=== PATIENT | male | born 1985 | race Caucasian/White ===

== ENCOUNTER 2021-07-10 15:39 | Inpatient (IN) | payer BC, OTHER ==
[2021-07-10 18:08] LABS: Amphetamine Screen,Urine Not Detected (NotDetected); Barbiturate Screen,Urine Not Detected (NotDetected); Benzodiazepines Screen,Urine Not Detected (NotDetected); Cocaine Screen,Urine Not Detected (NotDetected); Methadone Screen, Urine Not Detected (NotDetected); Opiate Screen,Urine Not Detected (NotDetected); Oxycodone Screen, Urine Not Detected (NotDetected); Phencyclidine Screen,Urine Not Detected (NotDetected); Tricyclic Antidepressant,Urine Not Detected (NotDetected); Urn Cannabinoid Scrn Detected (NotDetected)
[2021-07-10] MEDS ORDERED: MAG HYDROX/AL HYDROX/SIMETH 30 ML CUP PO PRN (20:55)
[2021-07-10] MEDS ORDERED: ACETAMINOPHEN TAB 325 MG TAB PO PRN (20:55)
[2021-07-10] MEDS ORDERED: MAGNESIUM HYDROXIDE 2,400 MG/10 ML CUP PO PRN (20:55)
[2021-07-10] MEDS ORDERED: LORazepam 2 MG/ML INJ IM PRN (20:58)
[2021-07-10] MEDS ORDERED: HALOPERIDOL LACTATE 5 MG/ML 1 ML VIAL IM PRN (20:58)
[2021-07-10] MEDS: LORazepam 1 MG TAB PO PRN (21:36)
--- NOTE | 2021-07-10 23:53 | ED ---
General Adult HPI - General Chief complaint: Psychiatric Symptoms Stated complaint: Mental Health Eval Time Seen by Provider: 07/10/21 16:34 Source: patient, RN notes reviewed, old records reviewed Mode of arrival: ambulatory Limitations: no limitations - History of Present Illness Initial comments: I evaluated the patient when he was placed in a room.Patient is a 35-year-old male with past medical history remarkable for recent depression who presents emergency department over concerns for worsening depression as well as suicidal ideations and plans. He recently lost both parents within the last year and is been feeling depressed. States he has been having thoughts of hanging himself. He denies any attempts. Denies any drug use. Denies any homicidal ideations, attempts complaints. Denies any visual or auditory hallucinations. Denies any chest pain, shortness breath, abdominal pain, nausea, vomiting, fevers, chills, sick contacts. He otherwise has no acute complaints. He presents with family and he is seeking evaluation by psychiatry for his current needs. - Related Data Home Medications Medication Instructions Recorded Confirmed No Known Home Medications 07/10/21 07/10/21 Allergies Allergy/AdvReac Type Severity Reaction Status Date / Time No Known Allergies Allergy Verified 07/10/21 20:46 Review of Systems ROS Statement: Those systems with pertinent positive or pertinent negative responses have been documented in the HPI. Review of Systems: CONST: Denies fever EYES: Denies blurry vision ENT: Denies nasal congestion C/V: Denies Chest pain RESP: Denies shortness of breath GI: Denies abdominal pain : Denies dysuria SKIN: Denies rash. MSK: Denies joint pain. NEURO: Denies headache PSYCH: Denies homicidal ideations/plans/attempts. Denies visual or auditory hallucinations. He endorses suicidal ideations, plans. Denies suicide attempts. ROS Other: All systems not noted in ROS Statement are negative. Past Medical History Past Medical History: No Reported History History of Any Multi-Drug Resistant Organisms: None Reported Past Surgical History: No Surgical Hx Reported Past Psychological History: No Psychological Hx Reported Smoking Status: Current every day smoker, Vaper Past Alcohol Use History: None Reported Past Drug Use History: Marijuana General Exam - General Exam Comments Initial Comments: General: Appears in no acute distress. Patient has flattened affect. HEAD: Normal with no signs of head trauma. EYES: PERRLA, EOMI, conjunctiva normal, no discharge. ENT: Hearing grossly intact, normal oropharynx. RESPIRATORY: Clear breath sounds bilaterally. No wheezes, rales, or rhonchi. C/V: Regular rate and rhythm. S1 and S2 auscultated, no edema, peripheral pul ses 2+ and intact throughout ABD: Abd is soft, nontender, nondistended EXT: Normal range of motion, no obvious deformity SKIN: No rashes or lesions observed on exposed skin. NEURO: Alert and oriented x 4. Cranial nerves II-XII intact. No focal sensory or strength deficits. Limitations: no limitations Course Vital Signs 07/10/21 07/10/21 07/10/21 16:24 17:28 19:27 Temperature 98.2 F Pulse Rate 95 Respiratory 20 18 18 Rate Blood Pressure 168/104 O2 Sat by Pulse 99 Oximetry 07/10/21 20:30 Temperature Pulse Rate Respiratory 18 Rate Blood Pressure O2 Sat by Pulse Oximetry Medical Decision Making - Medical Decision Making Based on the patient's presentation and physical exam, I do believe he requires psychiatric evaluation at this time. We'll obtain a screening breathalyzer test which was 0 for alcohol. UDS will also be obtained which revealed positive for marijuana. Covid is negative. At this time patient is medically cleared for evaluation by psychiatry. I do not believe that he requires any further laboratory studies or imaging at this time. Psychiatry evaluated the patient determined that he needs inpatient criteria for psychiatry. Patient will be admitted to psychiatry in stable condition for further treatment. - Lab Data Lab Results 07/10/21 07/10/21 Range/Units 17:28 19:37 Urine Opiates Screen Not Detected (NotDetected) Ur Oxycodone Screen Not Detected (NotDetected) Urine Methadone Screen Not Detected (NotDetected) Ur Propoxyphene Screen Not Detected (NotDetected) Ur Barbiturates Screen Not Detected (NotDetected) U Tricyclic Antidepress Not Detected (NotDetected) Ur Phencyclidine Scrn Not Detected (NotDetected) Ur Amphetamines Screen Not Detected (NotDetected) U Methamphetamines Scrn Not Detected (NotDetected) U Benzodiazepines Scrn Not Detected (NotDetected) Urine Cocaine Screen Not Detected (NotDetected) U Marijuana (THC) Screen Detected H (NotDetected) Coronavirus (PCR) Not Detected (Not Detectd) Disposition Clinical Impression: Encounter for psychiatric assessment, Suicidal ideation, Depression Disposition: ADMITTED IP TO THIS HOSP Condition: Stable
[2021-07-11] MEDS: NICOTINE 14MG/24HR PATCH TRANSDERM SCH (08:10)
[2021-07-11] MEDS: LORazepam 1 MG TAB PO PRN (08:10)
[2021-07-11 08:29] LABS: Basophils # (A) 0.1 k/uL (0-0.2); Basophils % (A) 1 %; Eosinophils # (A) 0.3 k/uL (0-0.7); Eosinophils % (A) 3 %; HCT 45.9 % (39.0-53.0); HGB 14.7 gm/dL (13.0-17.5); Lymphocytes # (A) 2.8 k/uL (1.0-4.8); Lymphocytes % (A) 38 %; MCH 29.7 pg (25.0-35.0); MCHC 32.1 g/dL (31.0-37.0); MCV 92.5 fL (80.0-100.0); Mean Platelet Volume 8.7; Monocytes # (A) 0.3 k/uL (0-1.0); Monocytes % (A) 5 %; Neutrophils # (A) 3.8 k/uL (1.3-7.7); Neutrophils % (A) 51 %; Platelet Count 152 k/uL (150-450); RBC 4.96 m/uL (4.30-5.90); WBC 7.5 k/uL (3.8-10.6)
[2021-07-11 08:39] LABS: ALT 19 U/L (4-49); AST 24 U/L (17-59); African American GFR (CKD) >90 (>60 ml/min/1.73 sqM); Albumin 4.1 g/dL (3.5-5.0); Alkaline Phosphatase 56 U/L (38-126); Anion Gap 6 mmol/L; Blood Urea Nitrogen 13 mg/dL (9-20); Calcium 9.4 mg/dL (8.4-10.2); Carbon Dioxide 27 mmol/L (22-30); Chloride 105 mmol/L (98-107); Glucose 88 mg/dL (74-99); Non-African American GFR(CKD) >90 (>60 ml/min/1.73 sqM); Potassium 4.4 mmol/L (3.5-5.1); Sodium 138 mmol/L (137-145); Total Bilirubin 0.7 mg/dL (0.2-1.3); Total Protein 6.8 g/dL (6.3-8.2)
[2021-07-11] MEDS: OLANZapine 5 MG TAB PO SCH ×3 (12:29→20:18)
[2021-07-11] MEDS: FLUoxetine HCL 20 MG CAP PO SCH (12:29)
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
[2021-07-11 17:17] LABS: Chol/HDL Ratio 3.35; Cholesterol 174 mg/dL (0-200); LDL Cholesterol,Calculated 98.8 mg/dL (0.0-131.0)
[2021-07-11] MEDS: IMIPRAMINE 25 MG TAB PO SCH (20:18)
[2021-07-12] MEDS: OLANZapine 5 MG TAB PO SCH (08:23)
[2021-07-12] MEDS: NICOTINE 14MG/24HR PATCH TRANSDERM SCH (08:23)
[2021-07-12] MEDS: FLUoxetine HCL 20 MG CAP PO SCH (08:23)
[2021-07-12] MEDS ORDERED: OLANZapine 10 MG TAB PO SCH (11:00)
[2021-07-12] MEDS ORDERED: OLANZapine 5 MG TAB PO ONE (11:30)
--- NOTE | 2021-07-12 12:03 | PN ---
PROGRESS NOTE DATE OF SERVICE: 07/12/2021. CHIEF COMPLAINT: The patient was depressed and hopeless. He had suicide thinking. He described high stress and grief. INTERVAL HISTORY: Patient has been continuing to struggle. He was out on the unit yesterday. He does not interact too much with others. He pays some attention to things going on around him. He did not attend groups yesterday. He said that he continued to feel quite depressed and distressed. He said he had difficulty sleeping last night where he woke frequently through the night. He notes that he did wake up once in the middle of the night and was somewhat in a daze and it took him a little bit to realize where he was. He says that is how his sleeping has been before coming into the hospital. He has been cooperative with care. Today, he has been out on the unit. He tends to wander about, though often walks in with a slumped posture and his head down. He has a very quiet manner. He continues today saying that he is very depressed and has not noticed any change in how he has been doing since admission. He tolerates his psychotropic medications. MENTAL STATUS: Patient sat in a slumped posture. Eye contact was fair at best. Psychomotor activity slow. Speech was monotone. He answered questions with brief responses. He was somewhat spontaneous. His affect was flat, mood depressed. He was he was significantly distressed. There was no indication of thought disorder. He voiced no thoughts of harm. Cognition was clear. ASSESSMENT: I will continue the current diagnosis and treatment plan. I will increase patient's Zyprexa to 10 mg twice a day. I will continue his Paxil 20 mg a day and Tofranil 25 mg at bedtime. I discussed the indication for his medications. I noted that it would take probably weeks for his antidepressant to have some benefit. I would look for some improvement in terms of stress reduction with the Zyprexa. I also noted that if he continues on the Tofranil over the next 3 or 4 days he may see some benefit in terms of improving sleep and reducing the nightmares that he has been having. There might be consideration for titrating up on Tofranil though typically 25 mg can be an effective dose to improve sleep architecture. I discussed long-term course of treatment including addressing depression and managing grief issues. I encouraged the patient to utilize some therapeutic walking as the potential help in reducing stress. We will focus on stabilization and discharge planning. MMCHALOL / IJN: [id number] /
[2021-07-12] MEDS: OLANZapine 10 MG TAB PO SCH (20:38)
[2021-07-12] MEDS: IMIPRAMINE 25 MG TAB PO SCH (20:38)
[2021-07-13 07:09] VITALS: TEMP 97.5
[2021-07-13] MEDS: NICOTINE 14MG/24HR PATCH TRANSDERM SCH (08:33)
[2021-07-13] MEDS: FLUoxetine HCL 20 MG CAP PO SCH (08:34)
[2021-07-13] MEDS: OLANZapine 10 MG TAB PO SCH ×2 (08:34→20:03)
--- NOTE | 2021-07-13 11:11 | P.PN ---
Progress Note - Text Progress Note Date: 07/13/21 Interval History: Patient was seen in his room and was directable and agreeable to speak with automotive service writer in the office. The patient continues to endorse significant symptoms of depression including feelings of sadness, crying episodes, low motivation, and suicidal ideation. He reports no current homicidal ideation, intention, and/or plan. He does attribute his depression to numerous stressors including the recent passing of his mother as well as his relationship with his children. He does admit to not coping with his emotional distress in a healthy manner in the outpatient setting stating that if substances such as alcohol were present he would engage in heavy use. He denies any auditory or visual hallucinations. He reports no paranoia or delusions. He has been adherent with the medications but is not endorsing any significant improvement in his mood. He does report an improved appetite. He reports sleep continues to be poor, with constant wakenings and difficulty with racing thoughts. Mental Status Exam: General Appearance: Patient appears to be stated age is alert, directable, and cooperative. Poor hygiene. Behavior: Patient is calmly seated without any agitated behavior. Crying throughout the interview. Eye contact is appropriate. Speech: Patient's speech is fluent and nonpressured. Spontaneous with normal rate, tone, and volume. Mood/Affect: Mood is depressed, affect is congruent and tearful. Suicidality/Homicidality: Patient denies having any suicidal or homicidal ideation intent or plan. Perceptions: Patient denies any visual hallucinations and denies any auditory hallucinations Though content/process: There is no evidence of any delusional thought content and thought process is linear and goal-directed. Memory and concentration: AOX3, grossly intact for the purposes of this session Judgment and insight: Improving mildly Vital Signs Temp 97.5 F L 07/13/21 07:01 Pulse 130 H 07/13/21 08:37 Resp 16 07/13/21 07:01 BP 142/93 07/13/21 08:37 Pulse Ox 99 07/10/21 16:24 Assessment Major Depressive Disorder, severe Posttraumatic Stress Disorder Alcohol Dependence Plan: -Patient continues to meet criteria for inpatient psychiatric admission for symptom stabilization and safety. Patient has signed adult voluntary form and medication consent and was placed in patient's chart. -Medications: Increase Prozac to 30 mg daily for depression/anxiety Continue Tofranil 25 mg for sleep terrors Continue Zyprexa 10 mg twice daily for mood augmentation Start Prazosin 1 mg at bedtime for PTSD-related nightmares. -When necessary Ativan and Haldol for agitation/aggression. -NRT - nicotine patch -SW on board for discharge planning. Encouraged the patient to participate in milieu.
[2021-07-13] MEDS: PRAZOSIN 1 MG CAP PO SCH (20:03)
[2021-07-13] MEDS: IMIPRAMINE 25 MG TAB PO SCH (20:03)
--- NOTE | 2021-07-13 21:50 | P.CONS ---
History of Present Illness - Reason for Consult Consult date: 07/13/21 - History of Present Illness The patient is a 35 yo M with a PMH of tobacco and marijuana abuse who presented to the ED with complaints of depression and suicidal ideation. The patient was admitted to the [facility] where he was seen and evaluated. The patient reported that both his parents over the last one year and that he had to take care of his ailing mother until her earlier this year. He reported that as a result, his personal relationships including the one with his suffered who has now left him with their children. The patient reports being suicidal and wanting to hang himself in the forest. He reports smoking one half packs of cigarettes daily along with occasional marijuana use. He denied physical complaints. He denied chest discomfort, shortness of breath, fever, chills, cough. Denied nausea, vomiting, abdominal pain, diarrhea. The patient's laboratory evaluation was reviewed. Review of systems: Pertinent positives and negatives as discussed in HPI, a complete review of sys tems was performed and all other systems are negative. Physical examination: General: non toxic, no distress, appears at stated age, overweight Derm: no unusual rashes/lesions no unusual ecchymoses, warm, dry Head: atraumatic, normocephalic, symmetric Eyes: EOMI, no lid lag, anicteric sclera, pupils equal round reactive to light ENT: Nose and ears atraumatic, no thrush, no pharyngeal erythema Neck: No thyromegaly, no cervical lymphadenopathy, trachea midline, supple Mouth: no lip lesion, mucus membranes moist Cardiovascular: S1S2 reg, no murmur, positive posterior tibial pulse bilateral, no edema, capillary refill less than 2 seconds Lungs: CTA bilateral, no rhonchi, no rales , no accessory muscle use Abdominal: soft, nontender to palpation, no guarding, no appreciable organomegaly, normal bowel sounds Ext: no gross muscle atrophy, muscle strength 5 out of 5 in all 4 extremities grossly, no contractures, Neuro: CN II-XI grossly intact, light touch intact all 4 extremities, finger to nose within normal limits, Psych: Alert, oriented, depressed affect Assessment/plan Tobacco abuse, marijuana abuse -Advised on importance of cessation -Nicotine patch as needed Depression with suicidal ideation -As per psychiatry Thank you for allowing us to participate in the care of this patient. We will follow peripherally. Do not hesitate to contact us with questions. Someone can be reached from the [facility] hospitalist group at all hours of the day at [phone]. Past Medical History Past Medical History: No Reported History History of Any Multi-Drug Resistant Organisms: None Reported Past Surgical History: No Surgical Hx Reported Past Psychological History: No Psychological Hx Reported Smoking Status: Current every day smoker, Vaper Past Alcohol Use History: None Reported Past Drug Use History: Marijuana - Past Family History Mother Family Medical History: CVA/TIA Medications and Allergies Home Medications Medication Instructions Recorded Confirmed Type No Known Home Medications 07/10/21 07/10/21 History Allergies Allergy/AdvReac Type Severity Reaction Status Date / Time No Known Allergies Allergy Verified 07/10/21 20:46 Physical Exam Vitals: Vital Signs Temp Pulse Pulse Resp BP BP 07/13/21 08:37 130 H 142/93 07/13/21 07:01 97.5 F L 90 16 123/78 Results CBC & Chem 7: 07/11/21 07:06 07/11/21 07:06
[2021-07-14 06:36] VITALS: BP 128/76; PULSE 65; RESP 14
[2021-07-14] MEDS: NICOTINE 14MG/24HR PATCH TRANSDERM SCH (07:56)
[2021-07-14] MEDS: OLANZapine 10 MG TAB PO SCH (07:56)
[2021-07-14] MEDS ORDERED: FLUoxetine HCL 10 MG CAP PO SCH (09:00)
--- NOTE | 2021-07-14 11:01 | P.PN ---
Progress Note - Text Progress Note Date: 07/14/21 Interval History: Patient was seen in his room and was directable and agreeable to speak with alistair yung in the office. The patient reporrts he slept well last night. He states he dreamt about his children and these were happy dreams. He reports 5 hours of sleep. He is currently denying any suicidal or homicidal ideation, intention, and/or plan. He reports no auditory or visual hallucinations. He denies any paranoia or other delusions. He states he is feeling better and that he has been able to address his hygiene and grooming. He reports he spoke with his aunt who is a nurse about returning home to her and having her watch him in the short term. He states he is looking forward to seeing his children again. Mental Status Exam: General Appearance: Patient appears to be stated age is alert, directable, and cooperative. Improved hygiene and grooming. Behavior: Patient is calmly seated without any agitated behavior. Eye contact is appropriate. Speech: Patient's speech is fluent and nonpressured. Spontaneous with normal rate, tone, and volume. Mood/Affect: Mood is "better." Affect is congruent and constricted in range. Suicidality/Homicidality: Patient denies having any suicidal or homicidal ideation intent or plan. Perceptions: Patient denies any visual hallucinations and denies any auditory hallucinations Though content/process: There is no evidence of any delusional thought content and thought process is linear and goal-directed. Memory and concentration: AOX3, grossly intact for the purposes of this session Judgment and insight: Improving mildly Vital Signs Temp 97.5 F L 07/14/21 06:34 Pulse 65 07/14/21 06:34 Resp 14 07/14/21 06:34 BP 128/76 07/14/21 06:34 Pulse Ox 99 07/10/21 16:24 Assessment Major Depressive Disorder, severe Posttraumatic Stress Disorder Alcohol Dependence Plan: -Patient continues to meet criteria for inpatient psychiatric admission for symptom stabilization and safety. Patient has signed adult voluntary form and medication consent and was placed in patient's chart. -Medications: Increase Prozac to 40 mg daily for depression/anxiety Continue Tofranil 25 mg for sleep terrors Decrease Zyprexa to 10 mg at bedtime for mood augmentation Continue Prazosin 1 mg at bedtime for PTSD-related nightmares. -When necessary Ativan and Haldol for agitation/aggression. -NRT - nicotine patch -SW on board for discharge planning. Encouraged the patient to participate in milieu.
[2021-07-14] MEDS: PRAZOSIN 1 MG CAP PO SCH (20:30)
[2021-07-14] MEDS: IMIPRAMINE 25 MG TAB PO SCH (20:30)
[2021-07-14] MEDS ORDERED: OLANZapine 10 MG TAB PO SCH (21:00)
[2021-07-15] MEDS: NICOTINE 14MG/24HR PATCH TRANSDERM SCH (08:25)
[2021-07-15] MEDS ORDERED: FLUoxetine HCL 20 MG CAP PO SCH (09:00)
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
== END 2021-07-15 11:40 | disposition home or self-care (01) | DRG 885 ==
LOC: EC 15:39 → 3MHU 20:52
PROVIDERS: ADMIT Psychiatry & Neurology Psychiatry; ATTEND Psychiatry & Neurology Psychiatry
DX: F33.2 Major depressive disorder, recurrent severe without psychotic features (principal); F10.239 Alcohol dependence with withdrawal, unspecified; G25.9 Extrapyramidal and movement disorder, unspecified; F11.10 Opioid abuse, uncomplicated; F12.10 Cannabis abuse, uncomplicated; F17.210 Nicotine dependence, cigarettes, uncomplicated; F41.0 Panic disorder [episodic paroxysmal anxiety]; F43.10 Post-traumatic stress disorder, unspecified; T40.1X2A Poisoning by heroin, intentional self-harm, initial encounter; Z20.822 Contact with and (suspected) exposure to COVID-19; Z79.899 Other long term (current) drug therapy; Z82.3 Family history of stroke
CPT/HCPCS: 80053; 80061; 80306; 82075; 83036; 84443; 85025; 87635; 99285

== ENCOUNTER 2021-08-19 13:33 | Emergency (ER) | payer BC ==
[2021-08-19 14:14] VITALS: BP 142/87; PULSE 108; RESP 22; TEMP 98
[2021-08-19] MEDS ORDERED: LORazepam 1 MG TAB PO STA ×2 (16:18→18:27)
[2021-08-19 16:42] LABS: Amphetamine Screen,Urine Not Detected (NotDetected); Barbiturate Screen,Urine Not Detected (NotDetected); Benzodiazepines Screen,Urine Detected (NotDetected); Cocaine Screen,Urine Not Detected (NotDetected); Methadone Screen, Urine Not Detected (NotDetected); Opiate Screen,Urine Not Detected (NotDetected); Oxycodone Screen, Urine Not Detected (NotDetected); Phencyclidine Screen,Urine Not Detected (NotDetected); Tricyclic Antidepressant,Urine Detected (NotDetected); Urn Cannabinoid Scrn Not Detected (NotDetected)
--- NOTE | 2021-08-19 16:52 | ED ---
General Adult HPI - General Chief complaint: Anxiety Stated complaint: Anxiety Time Seen by Provider: 08/19/21 15:41 Source: patient, RN notes reviewed, old records reviewed Mode of arrival: ambulatory Limitations: no limitations - History of Present Illness Initial comments: I evaluated the patient when he was placed in a room. Patient is a 35-year-old male with past medical history remarkable for anxiety and panic attacks as well as depression after. Of time recently in which she took her of his mother who as well as his father who . Since that time he has been having bad anxiety attacks and panic attacks. Was recently admitted to the hospital for suicidal ideations associated with these. He presents emergency department today complaining of worsening anxiety and panic attacks have been ongoing over the past few weeks. This is been happening since last time he saw his psychiatrist. He is unable to see a psychiatrist on an outpatient basis due to the sheer volume of patients at the facility. He states that his anxiety has been unbearable and didn't know what to take him to the emergency department. Is requesting to speak with psychiatry at this time. He has been attempting to control his anxiety and panic attacks with his Ativan 0.5 mg 3 times a day, however it seems to really take the edge off. He is endorsing chest tightness when they panic attacks are bad. He believes these are directly associated with them. Denies any fevers, chills, cough, abdominal pain, nausea, vomiting. Endorses lack of appetite as well as improved sleeping from last time. Denies any weakness or numbness. Denies any headaches. His no other acute complaints at this time. Denies any current suicidal ideations, attempts, plans. Denies any visual or auditory hallucinations. - Related Data Home Medications Medication Instructions Recorded Confirmed Citalopram Hydrobromide [CeleXA] 20 mg PO DAILY 08/19/21 08/19/21 Imipramine HCl [Tofranil] 50 mg PO DAILY 08/19/21 08/19/21 LORazepam [Ativan] 0.5 mg PO DAILY PRN 08/19/21 08/19/21 QUEtiapine [SEROquel] 100 mg PO HS 08/19/21 08/19/21 hydrOXYzine pamoate [Vistaril] 25 - 50 mg PO BID PRN 08/19/21 08/19/21 traZODone HCL [Desyrel] 50 mg PO HS PRN 08/19/21 08/19/21 Previous Rx's Medication Instructions Recorded Prazosin [Minipress] 1 mg PO HS 30 Days cap 07/15/21 OLANZapine [ZyPREXA] 10 mg PO DAILY 8 Days #8 tablet 08/19/21 Allergies Allergy/AdvReac Type Severity Reaction Status Date / Time No Known Allergies Allergy Verified 08/19/21 17:21 Review of Systems ROS Statement: Those systems with pertinent positive or pertinent negative responses have been documented in the HPI. Review of Systems: CONST: Denies fever EYES: Denies blurry vision ENT: Denies nasal congestion C/V: Denies Chest pain RESP: Denies shortness of breath GI: Denies abdominal pain : Denies dysuria SKIN: Denies rash. MSK: Denies joint pain. NEURO: Denies headache PSYCH: Denies suicidal and homicidal ideations/plans/attempts. Denies visual or auditory hallucinations. He endorses anxiety ROS Other: All systems not noted in ROS Statement are negative. Past Medical History Past Medical History: No Reported History History of Any Multi-Drug Resistant Organisms: None Reported Past Surgical History: No Surgical Hx Reported Past Psychological History: Anxiety Smoking Status: Former smoker, Vaper Past Alcohol Use History: None Reported Past Drug Use History: None Reported, Marijuana - Past Family History Mother Family Medical History: CVA/TIA General Exam - General Exam Comments Initial Comments: General: Appears anxious. HEAD: Normal with no signs of head trauma. EYES: PERRLA, EOMI, conjunctiva normal, no discharge. Pupils are 3 mm and equal bilaterally. ENT: Hearing grossly intact, normal oropharynx. RESPIRATORY: Clear breath sounds bilaterally. No wheezes, rales, or rhonchi. C/V: Patient is mildly tachycardic. Regular rhythm. S1 and S2 auscultated. Peripheral pulses are 2+ and intact throughout. ABD: Abd is soft, nontender, nondistended EXT: Normal range of motion, no obvious deformity SKIN: No rashes or lesions observed on exposed skin. NEURO: Alert and oriented x 4. Cranial nerves II-XII intact. No focal sensory or strength deficits. Limitations: no limitations Course Vital Signs 08/19/21 14:12 Temperature 98.0 F Pulse Rate 108 H Respiratory 22 Rate Blood Pressure 142/87 O2 Sat by Pulse 98 Oximetry Medical Decision Making - Medical Decision Making Based on the patient's presentation and physical exam, I believe that is experiencing worsening anxiety and panic attacks at home that have been difficult to control. He is not having having any suicidal or homicidal ideations, attempts, plans. However he is requesting to speak with psychiatry which I believe is reasonable at this time. He is unable to follow up with outpatient to suture volume. He is having a difficult time at home at this time. He does have a history of psychiatric admission for bad anxiety. Therefore we will obtain a screening EKG, as well as UDS and breathalyzer alcohol level. UDS will be consulted. Patient was in agreement this plan. He'll be given 1 mg of by mouth Ativan. UDS was positive for benzos and tricyclics. Breathalyzer alcohol level was 0. Screening EKG showed normal sinus rhythm without any signs of ischemia. At this time the patient is medically cleared for evaluation by psychiatry. Disposition is to acute psychiatric evaluation. After evaluation by psychiatry, it was determined that he does not need inpatient psychiatric criteria. Patient will be discharged home with follow-up plan. Overbite him with a prescription for his Zyprexa until he can follow up with his psychiatrist. There were in agreement with this plan. I will provide the patient with a prescription for Zyprexa 10 mg for 8 days. I instructed the patient to follow up with their PCP in the next 3 days. I explained that the patient should return to the emergency department if they experience any worsening symptoms. Strict return precautions were discussed with the patient. The patient expressed understanding of these instructions. I answered all questions that the patient had. The patient was discharged home in fair condition with their prescriptions and follow up information. - Lab Data Lab Results 08/19/21 Range/Units 16:27 Urine Opiates Screen Not Detected (NotDetected) Ur Oxycodone Screen Not Detected (NotDetected) Urine Methadone Screen Not Detected (NotDetected) Ur Propoxyphene Screen Not Detected (NotDetected) Ur Barbiturates Screen Not Detected (NotDetected) U Tricyclic Antidepress Detected H (NotDetected) Ur Phencyclidine Scrn Not Detected (NotDetected) Ur Amphetamines Screen Not Detected (NotDetected) U Methamphetamines Scrn Not Detected (NotDetected) U Benzodiazepines Scrn Detected H (NotDetected) Urine Cocaine Screen Not Detected (NotDetected) U Marijuana (THC) Screen Not Detected (NotDetected) - EKG Data -: EKG Interpreted by Me EKG Comments: 12-lead Electrocardiogram Interpretation Note EKG was reviewed and interpreted by myself. 12-lead ECG performed at 1620 is interpreted by me as revealing normal sinus rhythm at a rate of 100 beats per minute. [place] is normal. AR interval is 126 seconds, QRS duration is 84 ms, QTc is 441 ms.. There were no ST or T wave abnormalities to suggest myocardial ischemia or injury. R wave progression across the precordium was satisfactory. By my interpretation this EKG is non-diagnostic for acute ischemia. Disposition Clinical Impression: Acute anxiety, Panic attack, Encounter for psychiatric assessment Disposition: HOME SELF-CARE Condition: Fair Instructions (If sedation given, give patient instructions): Generalized Anxiety Disorder (ED) Prescriptions: OLANZapine [ZyPREXA] 10 mg PO DAILY 8 Days #8 tablet Is patient prescribed a controlled substance at d/c from ED?: No Referrals: Werner Hill MD [Primary Care Provider] - 1-2 days
== END 2021-08-19 20:40 | disposition home or self-care (01) ==
LOC: EC 13:33
DX: Z04.6 Encounter for general psychiatric examination, requested by authority (principal); F41.0 Panic disorder [episodic paroxysmal anxiety]; Z79.899 Other long term (current) drug therapy; Z87.891 Personal history of nicotine dependence
CPT/HCPCS: 80306; 93005; 99283

== ENCOUNTER → 2021-10-29 | Outpatient (CLI) | payer BC ==
--- NOTE | 2021-10-29 22:06 | MR ---
EXAMINATION TYPE: MR brain wo/w con DATE OF EXAM: 10/29/2021 COMPARISON: NONE HISTORY: Tremor, tinnitus more so rt sided, mental breakdown TECHNIQUE: Multiplanar, multisequence images of the brain and brainstem is performed without and with IV contras t, utilizing 10 mL intravenous Gadavist . FINDINGS: Diffusion weighted images demonstrate no evidence of a recent infarct or other diffusion ab normality. There is no extra-axial fluid collection or significant white matter signal abnormality. The ventricular system and cisternal spaces are normal in size and appearance. The brain volume is age appropriate. Midline structures demonstrate normal morphology. The craniocervical junction appears within normal limits. Post contrast images demonstrate no abnormal enhancement. The dural venous sinuses appear pa tent. Vhun-[id number] mucosal thickening involving the inferior ethmoid sinuses bilaterally. Mild to moderate lobulated mucosal thickening inferior aspect bilateral maxillary sinuses. Globes are intact bilaterally. IMPRESSION: Chronic paranasal sinus disease as detailed above otherwise unremarkable study.
== END | disposition home or self-care (01) ==
LOC: RADMRIMAIN 15:40
PROVIDERS: ATTEND Family Medicine
DX: J34.89 Other specified disorders of nose and nasal sinuses (principal)
CPT/HCPCS: 70553; A9585